=== PATIENT | female | born 1975 | race Caucasian/White ===

== ENCOUNTER 2020-04-20 16:00 | Outpatient (CLI) | payer MEDICAID, SELFPAY ==
--- NOTE | 2020-04-20 16:27 | ECG_ITS ---
Measurements Intervals [place] Rate: 87 P: 53 NC: 154 QRS: 40 QRSD: 104 T: 14 QT: 368 QTc: 443 SINUS RHYTHM No previous ECG available for comparison Electronically Signed On 04-20-2020 16:37:25 CDT by Ty Hawthorne M.D. [email or web address]
== END 2020-04-20 16:01 | disposition home or self-care (01) ==
PROVIDERS: PCP Family Medicine; Visit Provider Specialist
DX: Z01.810 Encounter for preprocedural cardiovascular examination (principal)
CPT/HCPCS: 93005

== ENCOUNTER 2024-03-30 09:39 | Outpatient (CLI) | payer BC, MEDICAID, SELFPAY ==
--- NOTE | 2024-03-31 12:28 | P.DIET_ITS ---
Reason for Visit: 86618 E11.9 Person Interviewed: Patient Medical History, Labs and Background: Pt referred from Dr. Davidson for MNT for diabetes. pt with pmh significant for HTN, T2DM, overweight/obese. pt endorses feelings of depression for >1 year but denies any medical intervention or lifestyle changes to help treat it. Pt also endorses chronic fatigue. Weight History: Pt adamant about losing weight. Reports that weight gain initially started after having children. Concerns and Goals: adequate glycemic control/euglycemia weight loss management/reversal of prediabetes Sleep Hygiene: Pt reports normal sleeping habits/schedule Physical Activity: Currently walks outside 2x a week with family (reports about 45 min walk). Pt stands all day at work for 7-8 hours, 5 days a week. Reports that she is usually too tired to do much more physical activity when she gets home after work. She prefers to rest on her days off. Used this time to discuss importance of PA in weight management and BG control. Discussed going on walks with family, including weight/resistance training 2-3 days per week, and increasing PA can actually help with fatigue and energy levels. GI Symptoms: Nausea and Abdominal Pain Feeding Issues: None Other Feeding Issues: pt reports nausea throughout the day. Likely 2/2 increased hunger from limiting po intakes. Pt reports that she sometimes develops shakiness, blurry vision, fatigue but she treats by drinking some milk and peanut butter. Discussed that this could be a symptom of hypoglycemia as she is not eating regularly. Food Allergies and Sensitivities: none reported Meds, Supplements & Other: meds: Amlodipine, metformin (started 6mo-1yr ago), hydrochlorothiazide supplements: vitamin C gummy (250mg) QD, vitamin D gummy (2,000IU) QD, MVM QD 24 Hour Recall: * Pt reports that she is cutting back on sweets * Eats lots of sandwiches (likes adding veggies to them) * Discussed buying 100% whole grain bread (and quinoa, beans, lentils) * Discussed role of fiber and carbohydrates in glycemic control? * Does not eat out often. Everyone at home has role in preparing foods. Needs easier to prepare foods 2/2 lethargy. * Snacks at work: chicken tenders, okra, jojos, sliders. No lunch break? * Discussed eat baked chicken over fried, adding fruit or veggies from produce section to snacks.? * Does not pack lunch? * Discussed proteins in glycemic control * Quick eater * Discussed psychosomatic response to eating and how eating slow gives brain time to process. eating quickly often ensues following periods of restrictions * Fasts for most of the day but snacks on deli foods when she can? * Feels hungry throughout the day. Denies herself food? * Discussed how restrictions leads to overconsumption. pt reported that she typically overeats in the evening time * Has fruit bowl at home but does not always keep it filled * Reports that she does not prepare many vegetables or beans because kids do not like to eat them so she does not buy them * Tired after work. Does not have the energy to cook a meal all the time for family? * Discussed making PA a family activity to increase accountability? * Discussed how moving move will increase energy levels? * Discussed eating breakfast. Meal prepping overnight oats or eggs?to break fast. * Pt concerned with carbohydrates being bad and being avoided. Discussed importance of CHO and role in diabetes. * discussed complex CHOs and maintaining consist intake * Discussed how weight loss should not be the main goal, rather a benefit of lifestyle changes such as those discussed.? * risk of not seeing results (on the scale), becoming discouraged, and giving up * risk of losing weight via unhealthy mechanisms and when weight is lost, falling back into unhealthy patterns, gaining the weight back Eating Out: Pt and family does not eat out often but rather finds easy to eat/easy to prepare foods at home Soda vs Milk vs Water: Pt reports drinking lots of water to help suppress appetite. Also reports that she is trying to cut back on soda intake (currently drinking 1-3 sodas/week). Discussed substituting with diet soda. Pt brought up concerns of aspartame and cancer. I educated and eased concerns as diet is a healthy alternative when it comes to BG management Additional Comments: Nutritional diagnosis: Food and nutrition related knowledge deficit related to euglycemia as evidenced by RD referral from PCP and presence of prediabetes. Monitor: A1c, FBG, vitamin D serum levels, weight trends Recommendations: SMART goals: -Going for a walk 2-3 times a week for 45 minutes. -Eating breakfast 5 times a week on workdays (meal prepping things such as overnight oats and other breakfast foods) -Buy 100% whole grain carbohydrate foods -Adding a fruit or vegetable to every meal/snack -Make 1/2 of plate vegetables, 1/4 lean proteins, and 1/4 complex CHOs -Eat at least 2 meals per day, 5 days a week -Remembering to take MVM, vitamin D, glucosamine, vitamin C daily with meals. Pt denied any handouts or educational material -Recommend taking 4,000IU daily of Vit D (minimal sunlight exposure) -Recommend glucosamine supplementation daily for arthritis pain Coding Level of Care Code Nutrition/Individ/Init 60 min Time Spent (min) 60
== END 2024-03-30 09:40 | disposition home or self-care (01) ==
LOC: DIET 09:40
PROVIDERS: PCP Family Medicine; Visit Provider Family Medicine
DX: E11.9 Type 2 diabetes mellitus without complications (principal)
CPT/HCPCS: 97802